=== PATIENT | male | born 1975 | race Caucasian/White ===

== ENCOUNTER 2016-06-06 07:23 | Emergency (ER) | payer BC, OTHER ==
[~2016-06-06] VITALS: Ht 182.9 cm; Wt 123.2 kg
[~2016-06-06 07:23] MED LIST: CEPH500C PO; LRT5 PO; SULF800T23 PO
[2016-06-06 07:25] VITALS: TEMP 36.8; Ht 182.9 cm; Wt 123.2 kg
[2016-06-06] MEDS ORDERED: KETOROLAC TROMETHAMINE 30 MG/ML VIAL IV STA (07:59)
[2016-06-06] MEDS ORDERED: SODIUM CHLORIDE 0.9% 1000ML 1,000 ML IV ONE (08:00)
[2016-06-06] MEDS ORDERED: CYCLOBENZAPRINE HCL 5 MG TAB PO ONE (08:00)
[2016-06-06] MEDS ORDERED: METF1TAB53 PO (08:20)
[2016-06-06] MEDS ORDERED: LISI-461 PO (08:21)
[2016-06-06] MEDS ORDERED: HYDR25TA4 PO (08:22)
[2016-06-06] MEDS ORDERED: ASPI-390 PO (08:24)
[2016-06-06 08:42] LABS: BUN/CREATININE RATIO 19.3 (10-20); CALCIUM 8.7 mg/dl (8.5-10.1); CREATININE 0.95 mg/dl (0.60-1.40); POTASSIUM 3.5 mmol/L (3.5-5.1)
[2016-06-06 08:46] LABS: CKMB/CK RATIO 1.4 (0-3.0)
--- NOTE | 2016-06-06 08:47 | DIAGNOSTIC IMAGING REPORT ---
RIGHT SHOULDER 3 VIEWS CLINICAL HISTORY: Right shoulder pain. No reported history of trauma. FINDINGS: 3 views of the right shoulder are obtained. No prior studies are available for comparison at the time of dictation. The skeletal structures are well mineralized. No fracture or dislocation is seen. Productive degenerative change is identified at the acromioclavicular joint. Mild arthritic change is also present in the greater tuberosity of the humeral head. There is minimal spurring along the inferior aspect at the glenohumeral joint. The overlying soft tissues are within normal limits. Small pulmonary nodules are noted in the right lung. IMPRESSION: 1. Arthritic change as above. No acute bony abnormality is seen in the right shoulder. 2. Pulmonary nodules are noted in the right lung. These may represent calcified granulomas. Correlation with a 2 view chest x-ray is recommended. Electronically signed by: Tristen Lauren M.D. 06/06/2016 8:45 AM Dictated Date/Time: 06/06/2016 8:43 AM
[2016-06-06 08:51] LABS: HEMATOCRIT 41.5 % (42-52); MEAN CELL VOLUME 80.4 fL (80-100); MEAN CORPUSCULAR HEMOGLOBIN 27.9 pg (25-34); MEAN CORPUSCULAR HGB CONC 34.7 g/dl (32-36); PLATELET COUNT 100 K/uL (130-400); RED BLOOD COUNT 5.16 M/uL (4.7-6.1); WHITE BLOOD COUNT 6.49 K/uL (4.8-10.8)
[2016-06-06 08:52] LABS: COMPLETE YES; EOS % 0.2 %; IG% 0.2 %; LYMPH % 13.9 %; MONO % 14.5 %; NEUT % 71.2 %
[2016-06-06] MEDS ORDERED: CYCL10TA6 PO (09:37)
[2016-06-06 09:52] VITALS: BP 118/67; PULSE 85; O2SAT 98
[2016-06-06] MEDS ORDERED: TRIA75TA53 PO (09:54)
[2016-06-06] MEDS ORDERED: AMLO-114 PO (09:55)
--- NOTE | 2016-06-07 22:41 | EMERGENCY ROOM VISIT NOTE ---
ED Visit Note First contact with patient: 07:35 Chief Complaint: Shaking and shoulder pain. History of Present Illness: Mr. Avila is a 41-year-old white female who ambulates into the ED complaining of a body shaking and right shoulder pain. Historically patient reports he has a history of diabetes and hypertension. Patient reports over the last year he has been having multiple episodes of body tremors. He reports these sporadically occur and last anywhere from 10-15 minutes to multiple hours. He has not been evaluated these tremors. They occur without precipitating symptoms and he has not identified any regularity or consistency with these tremors. He reports after the tremors stopped he has generalized body aches. Patient reports 3 days ago he had one of these episodes of body tremors that lasted for approximately 8-10 hours. He awoke from her sleep after the tremors and hand noted that he had right shoulder pain. Throughout the second day he had multiple episodes of repeat tremors that lasted very lengths and after each event he had slightly worsening pain. Today he reports waking up and having slightly worsening pain and has not been able to move the shoulder because of the pain. Currently he describes this discomfort as a deep achy sensation and it is located anterior lateral aspect of the humeral head and over the distal clavicle. He rates his discomfort at baseline 3/10 but increases to 6/10 with movement. Once movement has resolved his pain goes back down to a level of 3/10. He has not taken any medications for pain prior to arrival at the hospital. He denies any associated symptoms that pain, thoracic back pain, recent direct or repetitive trauma to the shoulder, previous history of shoulder diseases or surgeries, right upper extremity weakness/numbness/tingling, chest pain, shortness of breath, decreased appetite, nausea, vomiting, fevers, sweats, skin eruptions, skin color changes. Review these tremors. of Systems: As noted above in history of present illness. 8 body systems were reviewed and found to be negative as noted above. Past Medical History: As previously noted, hepatic liver resection. Current Medications: Glucophage, Zestril And Excedrin Migraine Headache. Allergies to Medications: Patient denies. Social History: Patient is currently employed; he feels safe in his home environment; he admits to tobacco and alcohol use. Physical Examination: Vital Signs: Date Time Temp Pulse Resp B/P Pulse Ox O2 Delivery O2 Flow Rate FiO2 06/06/16 09:52 85 18 118/67 98 06/06/16 09:06 81 18 123/77 97 Room Air 06/06/16 07:25 36.8 93 18 179/91 94 Room Air GENERAL: 41-year-old male in mild distress due to pain, nontoxic-appearing, afebrile and hemodynamically stable. NEUROLOGICAL: Awake, alert and oriented to person, place and time. Answering questions appropriately and following commands. Normal gait. No focal motor sensory deficits. SKIN: Warm, dry and pink. No soft tissue eruptions or trauma noted. HEENT: Atraumatic and normocephalic. PERRLA. Sclera white and conjunctiva pink. No drainage from naris. Oral cavity moist and pink. Pharynx is nonerythematous or edematous. Speech normal. No lymphadenopathy. Trachea midline. No jugular venous distention. BACK: No tenderness over the bony cervical and thoracic spine. There was mild to moderate tenderness throughout the right trapezius muscle with obvious spasm. THORAX: Lungs sounds are clear to auscultation and equal bilaterally with symmetrical chest wall. No crepitus, tenderness, subcutaneous air or deformities noted. RIGHT UPPER EXTREMITY: No gross bony deformity. Moderate tenderness over the anterior aspect of the humeral head with no bony deformity, bony crepitus, swelling, erythema or ecchymosis. Mild tenderness over the distal clavicle extending into the acromioclavicular joint without bony deformity, bony crepitus , swelling, erythema or ecchymosis. He attempted to do active and passive range of motion exercises with the patient and was unsuccessful due to his pain. With the shoulder stabilize patient had full range of motion in flexion and extension elbow, pronation and supination of the forearm and flexion, extension and radial and ulnar deviation of the wrist against resistance. There was no elbow tenderness, forearm tenderness, wrist tenderness, hand or finger tenderness. Throughout the lower arm and hand was warm and pink and capillary refill is brisk. Distal pulses were intact and equal bilaterally. He was able to distinguish light sensations through all dermatomes. ED Course: Patient is assessed as noted above. Laboratory Testing: Test 06/06/16 08:15 Range/Units White Blood Count 6.49 4.8-10.8 K/uL Red Blood Count 5.16 4.7-6.1 M/uL Hemoglobin 14.4 14.0-18.0 g/dL Hematocrit 41.5 42-52 % Mean Corpuscular Volume 80.4 80-100 fL Mean Corpuscular Hemoglobin 27.9 25-34 pg Mean Corpuscular Hemoglobin Concent 34.7 32-36 g/dl Platelet Count 100 130-400 K/uL Mean Platelet Volume 12.0 7.4-10.4 fL Neutrophils (%) (Auto) 71.2 % Lymphocytes (%) (Auto) 13.9 % Monocytes (%) (Auto) 14.5 % Eosinophils (%) (Auto) 0.2 % Basophils (%) (Auto) 0.0 % Neutrophils # (Auto) 4.63 1.4-6.5 K/uL Lymphocytes # (Auto) 0.90 1.2-3.4 K/uL Monocytes # (Auto) 0.94 0.11-0.59 K/uL Eosinophils # (Auto) 0.01 0-0.5 K/uL Basophils # (Auto) 0.00 0-0.2 K/uL RDW Standard Deviation 40.0 36.4-46.3 fL RDW Coefficient of Variation 13.6 11.5-14.5 % Immature Granulocyte % (Auto) 0.2 % Immature Granulocyte # (Auto) 0.01 0.00-0.02 K/uL Sodium Level 137 136-145 mmol/L Potassium Level 3.5 3.5-5.1 mmol/L Chloride Level 104 98-107 mmol/L Carbon Dioxide Level 22 21-32 mmol/L Anion Gap 11.0 3-11 mmol/L Blood Urea Nitrogen 18 7-18 mg/dl Creatinine 0.95 0.60-1.40 mg/dl Est Creatinine Clear Calc Drug Dose 137.3 ml/min Estimated GFR () 114.0 Estimated GFR (Non- 98.3 BUN/Creatinine Ratio 19.3 10-20 Random Glucose 129 70-99 mg/dl Calcium Level 8.7 8.5-10.1 mg/dl Magnesium Level 2.0 1.8-2.4 mg/dl Total Creatine Kinase 58 39-308 U/L Creatine Kinase MB 0.8 0.5-3.6 ng/ml Creatine Kinase MB Ratio 1.4 0-3.0 Right Shoulder X-Rays: Were read by myself and the radiologist showing no acute fractures or dislocations. Productive degenerative changes at the acromioclavicular joint and mild arthritic changes present at the greater tuberosity of the humeral head with minimal spurring along the inferior aspect of the glenoid humeral joint. No soft tissue swelling or foreign bodies. Additionally a small pulmonary nodule was noted in the right lung. Patient was hydrated with normal saline and received 30 mg of Toradol IV and 10 mg of Flexeril by mouth. Patient was reassessed multiple times during his stay in the emergency department. Patient's case was reviewed with Dr. Cardenas; we agreed on diagnostic approach, change, disposition and plan. Patient was placed in an arm sling. Patient was educated about tonight's findings and instructed on his treatment plan; he verbalizes understanding and agreement with this plan. Clinical Impression: Right shoulder pain. Tremors. Disposition: Patient discharged home in stable condition accompanied by his ; prior to departure he was reassessed and subjectively reported he was feeling slightly better and rated his discomfort 2/10. Plan: Comfort measures were discussed with the patient including rest, ice, sling use and alternating ibuprofen and acetaminophen for pain. Patient was prescribed Flexeril 10 mg every 8 hours for muscle spasm. Patient was encouraged to follow-up with family physician for recheck. Patient was encouraged return to ED for worsening pain, worsening tremors, extremity weakness/numbness/tingling or any new/concerning symptoms.
== END 2016-06-06 09:53 | disposition home or self-care (01) ==
LOC: C.EDB 07:24
DX: M25.511 Pain in right shoulder (principal); R25.1 Tremor, unspecified; Z72.0 Tobacco use; Z90.49 Acquired absence of other specified parts of digestive tract; E11.9 Type 2 diabetes mellitus without complications; I10 Essential (primary) hypertension; Z79.84 Long term (current) use of oral hypoglycemic drugs; Z79.899 Other long term (current) drug therapy

== ENCOUNTER → 2016-06-07 | Outpatient (CLI) | payer OTHER ==
[~2016-06-07] MED LIST changes: +AMLO-114 PO; +ASPI-390 PO; -CEPH500C PO; +CYCL10TA6 PO; +KETO10TA PO; +LISI-461 PO; -LRT5 PO; +MELO15TA10 PO; +METF1TAB53 PO; +OXYC-57 PO; -SULF800T23 PO; +TRIA75TA53 PO
[2016-06-07 17:50] LABS: C-REACTIVE PROTEIN 9.09 mg/dl (0-0.29); THYROID STIMULATING HORMONE 1.91 uIu/ml (0.300-4.500); URIC ACID 6.1 mg/dl (2.6-7.2)
[2016-06-07 18:14] LABS: LYME DISEASE AB IGG NEG (NEG); LYME DISEASE AB IGM EQUIVOCAL (NEG)
[2016-06-07 18:58] LABS: HEMATOCRIT 41.4 % (42-52); MEAN CELL VOLUME 82.1 fL (80-100); MEAN CORPUSCULAR HEMOGLOBIN 28.8 pg (25-34); MEAN PLATELET VOLUME 13.1 fL (7.4-10.4); PLATELET COUNT 112 K/uL (130-400); RED BLOOD COUNT 5.04 M/uL (4.7-6.1)
[2016-06-07 19:22] LABS: COMPLETE YES; EOSINOPHIL % 0.9 %; LYMPH ABS # 1.46 K/uL (1.2-3.4); LYMPHOCYTE % 23.5 %; NEUTROPHILS % 72.1 %
[2016-06-10 10:39] LABS: 18KDIGG BAND NONREACTIVE (NONREACTIVE); 23KDIGG BAND NONREACTIVE (NONREACTIVE); 23KDIGM BAND REACTIVE (NONREACTIVE); 28KDIGG BAND NONREACTIVE (NONREACTIVE); 30KDIGG BAND NONREACTIVE (NONREACTIVE); 39KDIGG BAND NONREACTIVE (NONREACTIVE); 39KDIGM BAND NONREACTIVE (NONREACTIVE); 41KDIGG BAND NONREACTIVE (NONREACTIVE); 41KDIGM BAND REACTIVE (NONREACTIVE); 45KDIGG BAND NONREACTIVE (NONREACTIVE); 58KDIGG BAND NONREACTIVE (NONREACTIVE); 66KDIGG BAND NONREACTIVE (NONREACTIVE); 93KDIGG BAND NONREACTIVE (NONREACTIVE)
== END | disposition home or self-care (01) ==
LOC: C.LABPVFM 13:43
PROVIDERS: ATTEND Nurse Practitioner Family
DX: M25.519 Pain in unspecified shoulder (principal); R68.83 Chills (without fever); D69.6 Thrombocytopenia, unspecified; R53.83 Other fatigue

== ENCOUNTER → 2016-06-07 | Outpatient (CLI) | payer OTHER ==
--- NOTE | 2016-06-07 13:42 | DIAGNOSTIC IMAGING REPORT ---
CHEST 2 VIEWS ROUTINE CLINICAL HISTORY: PULMONARY NODULES abnormal shoulder series COMPARISON STUDY: 06/06/2016 FINDINGS: Several small calcified granulomas. Lungs otherwise are clear. No evidence for cardiac enlargement. IMPRESSION: Chronic granulomatous change. No acute process. Electronically signed by: Vincenzo Pham M.D. 06/07/2016 1:40 PM Dictated Date/Time: 06/07/2016 1:39 PM
== END | disposition home or self-care (01) ==
LOC: C.RADPV 13:12
PROVIDERS: ATTEND Nurse Practitioner Family
DX: R91.8 Other nonspecific abnormal finding of lung field (principal); J84.10 Pulmonary fibrosis, unspecified

== ENCOUNTER 2016-06-11 11:03 | Emergency (ER) | payer OTHER ==
[~2016-06-11] VITALS: Ht 182.9 cm; Wt 125.4 kg
[~2016-06-11 11:03] MED LIST changes: -KETO10TA PO; -MELO15TA10 PO; -OXYC-57 PO
[2016-06-11 11:06] VITALS: TEMP 36.8; Ht 182.9 cm; Wt 125.4 kg
[2016-06-11] MEDS ORDERED: OXYC-57 PO (11:22)
[2016-06-11] MEDS ORDERED: MELO15TA10 PO (11:22)
[2016-06-11] MEDS ORDERED: KETOROLAC TROMETHAMINE 60 MG/2 ML VIAL IM STA (12:06)
--- NOTE | 2016-06-11 12:12 | EMERGENCY ROOM VISIT NOTE ---
History Report prepared by Hermelinda: Bogdan De La Cruz Under the Supervision of: Dr. Delmar Glasgow M.D. First contact with patient: 11:52 Chief Complaint: SHOULDER PAIN Stated Complaint: SHOULDER PAIN History of Present Illness The patient is a 41 year old male who presents to the Emergency Room with complaints of persistent right shoulder pain for the past five days. The pain is currently rated 3/10 in severity. The patient was experiencing global tremors last Sunday night into Sunday, and when he woke up Sunday he had the right shoulder pain. The patient has experienced these episodes of tremors 3-4 times over the past several years, and usually has some soreness afterwards that is easily relieved with Advil. The tremors resemble those when somebody has the chills, except he did not have any fevers. The etiology of his tremors is unknown. The patient's pain is much more severe after this more recent episode. He was seen in the ED five days ago, where he had a negative right shoulder X-ray and was given muscle relaxers. He saw his PCP at [facility] 4 days ago, where he was prescribed Meloxicam and Oxycodone and had another negative X-ray. The patient notes that he needs 3-4 Oxycodone to relieve the pain, and he finished his last dose this morning. He has also been taking Tylenol and Excedrin. The patient was severely Vitamin D deficient when he saw his PCP. 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 Source of History: patient Onset: five days ago Position: shoulder (right) Symptom Intensity: 3/10 Timing: other (persistent) Modifying Factors (Relieving): narcotics Associated Symptoms: + chills, No fevers Review of Systems All systems have been listed, reviewed, and are negative other than those previously mentioned. Please see Additional Medical History Sheet. Past Medical & Surgical Medical Problems: (1) Diabetes (2) HTN (hypertension) (3) Liver mass Family History Cancer Gallbladder disease Heart disease Hypertension Kidney disease Social History Smoking Status: Never Smoker Alcohol Use: occasionally Marital Status: Housing Status: lives with family Occupation Status: employed Current/Historical Medications Scheduled Amlodipine (Norvasc), 10 MG PO DAILY Lisinopril (Zestril), 10 MG PO DAILY Meloxicam (Mobic), 15 MG PO DAILY Metformin Hcl (Glucophage Ext Rel), 500 MG PO DAILY Triamterene/Hctz (Maxzide 75MG/50MG), 0.5 TAB PO DAILY Scheduled PRN Qskdlyq-Klvntqxwltqsl-Sxutclmv (Excedrin Migraine), 4 TAB PO DAILY PRN for Pain Ketorolac Tromethamine (Toradol), 1 TAB PO Q6H PRN for Pain Oxycodone/Acetaminophen 5MG/325MG (Percocet 5MG/325MG), 1 TABLET PO Q6H PRN for Pain Allergies Coded Allergies: No Known Allergies (Unverified , 06/11/16) Physical Exam Vital Signs Date Time Temp Pulse Resp B/P Pulse Ox O2 Delivery O2 Flow Rate FiO2 06/11/16 13:52 93 18 142/81 96 Room Air 06/11/16 13:14 90 16 126/79 97 Room Air 06/11/16 11:06 36.8 103 18 164/92 98 Room Air Physical Exam GENERAL: Patient awake, alert, oriented x 3. Patient follows commands. Patient does not appear toxic. Patient is adequately hydrated and well- nourished. SKIN: No erythema, pallor, cyanosis or rash HEENT: Normal head, pupils equal, reactive to light and accommodation. Ears normal. Oral cavity and posterior pharynx appear normal. Neck: Without adenopathy, no neck vein distention. LUNGS: Clear to auscultation. No wheezes, no rales, no rhonchi. HEART: No murmurs. No gallops. No rubs ABDOMEN: Large well-healed scar noted. EXTREMITIES: Tenderness over the right AC joint, pain with abduction, some pain with flexion and extension. NEUROLOGIC: Cranial nerves II-XII within normal limits. No gross motor sensory function deficits. Medical Decision & Procedures ER Provider Diagnostic Interpretation: X ray results are stated below per my interpretation and the radiologist's interpretation. RIGHT ACROMIOCLAVICULAR JOINTS CLINICAL HISTORY: Right ACJ oint pain Right pain COMPARISON STUDY: None FINDINGS: Moderate degenerative changes acromioclavicular joints bilaterally. Moderate hypertrophic osteophytic change. There is no evidence for subluxation or separation p.m. post weightbearing. IMPRESSION: Moderate degenerative change. No evidence for a.c. separation Electronically signed by: Vincenzo Pham M.D. 06/11/2016 1:09 PM Dictated Date/Time: 06/11/2016 1:08 PM Medications Administered Medications (Trade) Dose Ordered Sig/Leif Route Start Time Stop Time Status Last Admin Dose Admin Ketorolac Tromethamine (Toradol Inj) 60 mg NOW STAT IM 06/11/16 12:06 06/11/16 12:10 DC 06/11/16 12:16 60 MG ED Course 1154: Past medical records reviewed. The patient was evaluated in room C12b. A complete history and physical examination was performed. 1206: Toradol 60 mg IM. 1355: Explained the findings to the patient. He understands and agrees with the discharge instructions. The patient is ready for discharge. Medical Decision I considered multiple diagnoses including AC joint separation, degenerative joint disease, fracture. The patient was given IM Toradol which helped considerably. Acromioclavicular joint x-rays do not reveal separation. The patient does have significant degenerative changes. I believe that his pain is secondary to that arthritis. The patient will continue with Toradol and we will stop the meloxicam. He is to follow-up with orthopedics in one week if symptoms are not subsiding. Impression Primary Impression: Right anterior shoulder pain Scribe Attestation The scribe's documentation has been prepared under my direction and personally reviewed by me in its entirety. I confirm that the note above accurately reflects all work, treatment, procedures, and medical decision making performed by me. Departure Information Dispostion Home / Self-Care Prescriptions Ketorolac Tromethamine (TORADOL) 10 Mg Tab 1 TAB PO Q6H Y for Pain for 7 Days, #28 TAB Prov: Delmar Glasgow M.D. 06/11/16 Referrals Judith Mott C.R.N.P (PCP) Forms HOME CARE DOCUMENTATION FORM, IMPORTANT VISIT INFORMATION, Work Instructions Patient Instructions [facility] Additional Instructions Stop meloxicam. 1 Toradol every 6 hours as needed for shoulder pain. Follow-up with orthopedics in 7 days if symptoms are not subsiding. Apply heat intermittently to your shoulder over the next 3 days. You may return to work 06/13/16 Work Instructions Specific Date: 06/13/16
--- NOTE | 2016-06-11 13:10 | DIAGNOSTIC IMAGING REPORT ---
RIGHT ACROMIOCLAVICULAR JOINTS CLINICAL HISTORY: Right ACJ oint pain Right pain COMPARISON STUDY: None FINDINGS: Moderate degenerative changes acromioclavicular joints bilaterally. Moderate hypertrophic osteophytic change. There is no evidence for subluxation or separation p.m. post weightbearing. IMPRESSION: Moderate degenerative change. No evidence for a.c. separation Electronically signed by: Vincnezo Pham M.D. 06/11/2016 1:09 PM Dictated Date/Time: 06/11/2016 1:08 PM
[2016-06-11] MEDS ORDERED: KETO10TA PO (13:40)
[2016-06-11 13:52] VITALS: BP 142/81; PULSE 93; O2SAT 96
== END 2016-06-11 13:54 | disposition home or self-care (01) ==
LOC: C.EDB 11:04 → C.EDC 13:54
DX: M25.511 Pain in right shoulder (principal); E11.9 Type 2 diabetes mellitus without complications; I10 Essential (primary) hypertension; Z98.890 Other specified postprocedural states; Z82.49 Family history of ischemic heart disease and other diseases of the circulatory system

== ENCOUNTER → 2016-07-31 | Outpatient (CLI) | payer OTHER ==
[~2016-07-31] MED LIST changes: -CYCL10TA6 PO; +MELO15TA10 PO; +OXYC-57 PO
== END | disposition home or self-care (01) ==
LOC: C.LABPVFM 09:20
PROVIDERS: ATTEND Nurse Practitioner Family
DX: E55.9 Vitamin D deficiency, unspecified (principal)

== ENCOUNTER → 2016-11-03 | Outpatient (CLI) | payer OTHER ==
[~2016-11-03] VITALS: Ht 182.9 cm; Wt 127.4 kg
[2016-11-03 14:39] VITALS: BP 158/83; PULSE 78; Ht 182.9 cm; Wt 127.4 kg
== END | disposition home or self-care (01) ==
LOC: C.NEUR 14:18
PROVIDERS: ATTEND Physician Assistant
DX: G47.30 Sleep apnea, unspecified (principal)

== ENCOUNTER → 2016-11-07 | Outpatient (CLI) | payer OTHER ==
[2016-11-07 13:17] LABS: ESTIMATED AVERAGE GLUCOSE 108 mg/dl; HA1C FLAG Normal (Normal)
[2016-11-07 13:27] LABS: BLOOD UREA NITROGEN 27 mg/dl (7-18); BUN/CREATININE RATIO 27.3 (10-20); CALCIUM 9.1 mg/dl (8.5-10.1); CARBON DIOXIDE 27 mmol/L (21-32); CHLORIDE 106 mmol/L (98-107); CREATININE 0.99 mg/dl (0.60-1.40); GLUCOSE 109 mg/dl (70-99); POTASSIUM 4.3 mmol/L (3.5-5.1); SODIUM 138 mmol/L (136-145)
[2016-11-07 13:30] LABS: CHOLESTEROL 177 mg/dl (0-200); CHOLESTEROL/HDL RATIO 7.1; HDL CHOLESTEROL 25 mg/dl; LDL CHOLESTEROL CALCULATED 88 mg/dl; TRIGLYCERIDES 321 mg/dl (0-150); VERY LOW DENSITY LIPOPROT CALC 64 mg/dl
== END | disposition home or self-care (01) ==
LOC: C.LABPVFM 07:33
PROVIDERS: ATTEND Nurse Practitioner
DX: I10 Essential (primary) hypertension (principal); E78.1 Pure hyperglyceridemia; E11.9 Type 2 diabetes mellitus without complications

== ENCOUNTER → 2017-11-01 | Outpatient (CLI) | payer OTHER ==
[~2017-11-01] VITALS: Ht 182.9 cm; Wt 119.6 kg
[~2017-11-01] MED LIST changes: -AMLO-114 PO; +AMLO10TA3 PO
[2017-11-01 15:34] VITALS: BP 148/87; PULSE 81; Ht 182.9 cm; Wt 119.6 kg
== END | disposition home or self-care (01) ==
LOC: C.NEUR 14:46
PROVIDERS: ATTEND Physician Assistant
DX: G47.30 Sleep apnea, unspecified (principal); N28.9 Disorder of kidney and ureter, unspecified; I10 Essential (primary) hypertension; E11.9 Type 2 diabetes mellitus without complications; E55.9 Vitamin D deficiency, unspecified